=== PATIENT | female | born 1985 | race Two or more races ===

== ENCOUNTER 2020-12-17 04:08 | Inpatient (IN) ==
[2020-12-17] MEDS ORDERED: ACETAMINOPHEN 325 MG TABLET PO PRN ×2 (04:24→19:39)
[2020-12-17] MEDS ORDERED: MEPERIDINE 50 MG/1 ML VIAL IV PRN (04:24)
[2020-12-17] MEDS ORDERED: BUTORPHANOL 2 MG/ML VIAL IV PRN (04:24)
[2020-12-17] MEDS ORDERED: ONDANSETRON 4 MG/2 ML VIAL IV PRN ×2 (04:24→19:39)
[2020-12-17] MEDS ORDERED: OXYTOCIN/LR 20 UNIT/1,000 ML BAG IV SCH (04:30)
[2020-12-17] MEDS: LACTATED RINGERS 1,000 ML IV SCH ×2 (05:00→13:18)
[2020-12-17 05:33] LABS: Basophils % 0.3 % (0.0-0.8); Eosinophils # 0.1 10*3/uL (0.0-0.87); Eosinophils % 1.7 % (0.00-10.9); Hematocrit 36.2 VOL% (35.7-47.0); Hemoglobin 12.7 GM/DL (12.0-16.0); Immature Granulocytes % 0.3 %; Immature Granulocytes Absolute 0.02 #; Lymphocytes # 2.3 10*3/uL (1.4-4.0); Lymphocytes % 37.9 % (21.3-54.2); Mean Corpuscular HGB Conc 35.1 GM/DL (32-36); Mean Corpuscular Volume 82.8 FL (87-102); Mean Platelet Volume 12.6 FL (9.6-12.0); Monocytes % 9.3 % (1.7-12.7); Neutrophils % 50.5 % (38.7-73.9); Platelet Count 191 T/CUMM (130-400); Red Blood Count 4.37 MC/CUMM (3.8-5.5); Red Cell Distribution Width 14.6 % (9.3-17.3); White Blood Count 5.9 T/CUMM (4-12)
[2020-12-17 06:05] LABS: Albumin 2.8 G/DL (3.4-5.0); Bilirubin,Total 0.6 MG/DL (0.2-1.0); Calcium 10.6 MG/DL (8.5-10.1); Potassium 3.4 MMOL/L (3.5-5.1); Total Protein 7.6 G/DL (5.0-7.5)
[2020-12-17] MEDS ORDERED: diphenhydrAMINE 50 MG/1 ML VIAL ONE (12:24)
[2020-12-17] MEDS ORDERED: diphenhydrAMINE 50 MG/1 ML VIAL IV ONE (12:25)
[2020-12-17] MEDS ORDERED: ePHEDrine 50 MG/ML VIAL IV PRN ×2 (14:29)
[2020-12-17] MEDS ORDERED: NALOXONE 0.4 MG/ML VIAL IV PRN (14:29)
[2020-12-17] MEDS ORDERED: PROMETHAZINE 25 MG/1 ML VIAL IM PRN (14:29)
[2020-12-17] MEDS ORDERED: FAMOTIDINE 20 MG/2 ML VIAL IV ONE (14:29)
[2020-12-17] MEDS ORDERED: CITRIC ACID/SODIUM CITRATE 30 ML UDCUP PO ONE (14:29)
[2020-12-17] MEDS ORDERED: fentaNYL 2 MCG/ROPIV 0.2% EPID 100 ML EPIDURAL SCH (14:30)
[2020-12-17] MEDS ORDERED: CITRIC ACID/SODIUM CITRATE 30 ML UDCUP ONE (14:36)
[2020-12-17 16:47] LABS: Bilirubin,Urine Negative (Negative); Blood, Urine Negative (Negative); Glucose,Urine (UA) Negative (Negative); Ketones,Urine 20 mg/dL (Negative); Mucus,Urine Occasional /LPF (Occasional); Nitrite,Urine Negative (Negative); Protein,Urine Negative; RBC,Urine <1 /HPF (0-4); Squamous Epithelial Cell,Urine Occasional /HPF (0-10); Urine Appearance CLEAR (Clear); Urine Color Straw (Yellow); Urine Specific Gravity 1.005 (1.001-1.035); Urine Urobilinogen < 2.0 EU/DL (0.2-1.0); WBC,Urine <1 /HPF (0-6)
[2020-12-17] MEDS ORDERED: OXYTOCIN/LR 20 UNIT/1,000 ML BAG IV ONE (19:39)
[2020-12-17] MEDS ORDERED: RHO(D) IMMUNE GLOBULIN 300 MCG SYRINGE IM ONE (19:39)
[2020-12-17] MEDS ORDERED: BISACODYL 10 MG SUPP RECTAL PRN (19:39)
[2020-12-17] MEDS ORDERED: MEASLES/MUMPS/RUBELLA VACCINE 0.5 ML VIAL SUBCUT ONE (19:39)
[2020-12-17] MEDS ORDERED: oxyCODONE/ACETAMINOPHEN 5-325 MG TABLET PO PRN ×2 (19:39)
[2020-12-17] MEDS ORDERED: LANOLIN 50% CREAM 0.3 OZ TUBE TOP PRN (19:39)
[2020-12-17] MEDS ORDERED: DIPH/TET/ACEL PERT BOOSTER VACCINE 0.5 ML VIAL IM ONE (19:39)
[2020-12-17] MEDS ORDERED: IBUPROFEN 800 MG TABLET PO PRN (19:39)
[2020-12-17] MEDS ORDERED: HYDROCORTISONE 2.5% RECTAL CREAM 30 GM TUBE TOP PRN (19:39)
[2020-12-17] MEDS ORDERED: BENZOCAINE 20%/MENTHOL 0.5% SPRAY 56 GM CAN TOP PRN (19:39)
[2020-12-17] MEDS ORDERED: WITCH HAZEL PADS 100/JAR TOP PRN (19:39)
[2020-12-17 19:41] LABS: Cord Arterial Blood HCO3 22.5 MMOL/L
[2020-12-17 19:43] LABS: Cord Venous Blood HCO3 23.4 MMOL/L
[2020-12-18 06:20] LABS: Basophils % 0.3 % (0.0-0.8); Eosinophils # 0.1 10*3/uL (0.0-0.87); Eosinophils % 0.8 % (0.00-10.9); Hematocrit 31.5 VOL% (35.7-47.0); Hemoglobin 10.9 GM/DL (12.0-16.0); Immature Granulocytes % 0.5 %; Immature Granulocytes Absolute 0.05 #; Lymphocytes # 1.9 10*3/uL (1.4-4.0); Lymphocytes % 20.5 % (21.3-54.2); Mean Corpuscular HGB Conc 34.6 GM/DL (32-36); Mean Corpuscular Volume 84.2 FL (87-102); Mean Platelet Volume 11.9 FL (9.6-12.0); Monocytes % 8.7 % (1.7-12.7); Neutrophils % 69.2 % (38.7-73.9); Platelet Count 158 T/CUMM (130-400); Red Blood Count 3.74 MC/CUMM (3.8-5.5); Red Cell Distribution Width 14.9 % (9.3-17.3); White Blood Count 9.2 T/CUMM (4-12)
[2020-12-18] MEDS: DOCUSATE SODIUM 100 MG CAPSULE PO SCH ×2 (10:20→20:36)
[2020-12-18] MEDS ORDERED: AMPICILLIN 2,000 MG VIAL ONE (11:35)
[2020-12-19] MEDS: DOCUSATE SODIUM 100 MG CAPSULE PO SCH (08:23)
[2020-12-19 09:23] VITALS: BP 91/70
== END 2020-12-19 11:50 | disposition home or self-care (01) | DRG 807 ==
LOC: N.LD 04:08 → N.OB 22:55
PROVIDERS: ADMIT Obstetrics & Gynecology; ATTEND Obstetrics & Gynecology